=== PATIENT | male | born 1995 | race Caucasian/White ===

== ENCOUNTER 2023-03-04 06:47 | Emergency (ER) | payer BC, SELFPAY ==
[2023-03-04 06:49] VITALS: BP 164/95; PULSE 82; RESP 15; TEMP 37.1; O2SAT 98; BMI 33.7
--- NOTE | 2023-03-04 07:07 | EDS_ITS ---
HPI History of Present Illness Chief Complaint: Sore Throat Informant: patient Onset/Context/Timing Onset: Days Narrative Narrative: Patient presents secondary to sore throat, cough, vomiting, headache. Patient states he first felt sick last February 27. He developed a fever just over 101 that day. He has had a sore throat with cough and thick mucus. He does report some vomiting as well as some diarrhea. He had intermittent headaches during the week. Has been taking Tylenol. He did take 2 home COVID test, 1 on Tuesday and 1 on Tuesday that were negative. PFSH PFSH Medical History no medical history no medical history Home Medications ondansetron 4 mg disintegrating tablet 4 mg PO Q8H PRN PRN Nausea #10 tabs 03/04/23 [Rx Last Taken Unknown] prednisone 20 mg tablet 40 mg (2 x 20 mg) PO DAILY #8 tabs 03/04/23 [Rx Last Taken Unknown] Allergy/AdvReac Type Severity Reaction Status Date / Time No Known Allergies Allergy Verified 03/04/23 06:49 Surgical History (Updated 03/04/23 @ 07:[address] Bela Batres MD) History of eye surgery History of shoulder surgery Surgical History no surgical history Social History Smoking Status: Never smoker ROS ROS ED Constitutional Constitutional ED: Reports fever(s); Denies chills Eyes Eyes: Denies change in vision or discharge from eye(s) ENT ENT ED: Reports sore throat; Denies discharge from eye(s) or rhinorrhea Cardiovascular Cardiovascular: Denies chest pain or palpitations Respiratory/Chest Respiratory/Chest: Reports cough and sputum; Denies dyspnea Gastrointestinal Gastrointestinal: Reports diarrhea, nausea and vomiting; Denies abdominal pain Genitourinary Genitourinary ED: Denies dysuria Musculoskeletal Musculoskeletal: Denies back pain or extremity pain Integumentary Denies Abrasions or rash Neurologic Neurologic: Reports headache(s); Denies weakness Psychiatric Psychiatric: Denies anxiety or depression Allergic/Immunologic Allergic/Immunologic ED: Denies lip swelling or urticaria EXAM Physical Exam Const Vital Signs: 03/04/23 06:49 Temperature 98.7 F Temperature Source Temporal Pulse Rate 82 Respiratory Rate 15 Blood Pressure 164/95 H Blood Pressure Mean 118 Pulse Ox 98 Oxygen Delivery Method Room Air Positive well nourished and well developed General Appearance ED: well developed HEENT Reports TM's clear and moist mucous membranes HEENT Narrative: Mild tonsillar enlargement bilaterally. No exudate. Uvula midline. Tolerating secretions well. Tympanic Membrane ED: Yes TM's clear Eyes PERRL and EOMs intact bilaterally Neck no lymphadenopathy Chest Wall inspection of chest normal and palpation of chest normal Resp normal respiratory effort and clear to auscultation bilaterally Cardio regular rate and regular rhythm GI non-tender Palpation: soft Extremity normal to inspection Neuro oriented x3 and no sensory deficits noted Motor Exam: strength 5/5 throughout Psych mental status grossly normal Skin no rashes or lesions noted MDM MDM MDM Narrative Medical decision making narrative: Patient given Zofran ODT along with p.o. prednisone here. Swab for rapid strep obtained. Swab for COVID, influenza, and RSV will be sent. Treatment and Re-Evaluation :: Rapid strep is obtained and negative. Swab for COVID, influenza, and RSV is negative as well. Test results discussed with the patient. He has pain when he talks but when he does talk he has a strong voice and is tolerating secretions well. I will send him for soft tissue neck x-ray to ensure no evidence of epiglottitis or other significant narrowing. X-ray per my interpretation reveals no acute abnormalities. I do feel patient has a viral syndrome. He will be covered with 4 additional days of steroid along with some Zofran for nausea. He will continue supportive care. Discharge Plan Triage Chief Complaint: Sore Throat ED Provider: Bela Batres Dx/Rx/DC Orders Clinical Impression: Viral URI, Viral pharyngitis Instructions: ED Pharyngitis, Viral, ED URI, Viral, No Abx (Adult) Prescriptions: New prednisone 20 mg tablet 40 mg PO DAILY Qty: 8 0RF ondansetron 4 mg tablet,disintegrating 4 mg PO Q8H PRN PRN (Reason: Nausea) Qty: 10 0RF Primary Care Provider: Care Physician,No Primary Referrals: Sav Hawkins DO [Med Staff - Chemical Unit Operator] - As Needed Care Physician,No Primary [Primary Care Provider] - Disposition Disposition: Home, Self Care
[2023-03-04] MEDS: Ondansetron ODT 4 MG Tablet PO (07:14)
[2023-03-04] MEDS: predniSONE 20 MG Tablet 40 MG PO (07:14)
--- NOTE | 2023-03-04 08:20 | RAD_ITS ---
STUDY: X-RAY - SOFT TISSUE NECK REASON FOR EXAM: Male, 27 years old. Sore throat. TECHNIQUE: 2 view(s) of the neck were obtained. COMPARISON: None. FINDINGS: Normal visualized nasopharynx, oropharynx, hypopharynx. Normal epiglottis. There is symmetric narrowing of the subglottic tracheal air column with loss of the normal shoulders of the upper airway, producing a steeple appearance, consistent with acute laryngotracheobronchitis ( croup ). Normal prevertebral soft tissue structures. Normal visualized osseous structures. The soft tissue structures are unremarkable. RAD/Neck for Soft Tissue IMPRESSION: Findings suggestive of croup. Electronically Signed: Arnel Mojica MD at 8:49 EST ,
[2023-03-04 09:08] VITALS: BP 108/76; PULSE 62; RESP 15; O2SAT 99
== END 2023-03-04 09:08 | disposition home or self-care (01) ==
PROVIDERS: Emergency Provider Emergency Medicine; Visit Provider Emergency Medicine
DX: J06.9 Acute upper respiratory infection, unspecified (principal); B97.89 Other viral agents as the cause of diseases classified elsewhere
CPT/HCPCS: 70360; 87631; 87651; 99283